=== PATIENT | female | born 1980 | race Caucasian/White ===

== ENCOUNTER 2025-01-06 15:52 | Outpatient (CLI) | payer OTHER, SELFPAY ==
--- OUTSIDE RECORDS SUMMARY | 2025-01-06 15:55 | XMS_ITS | Referral Summary ---
Author Organization [facility] Address [address] [place] [id number] Care Team Providers Care Housekeeping Worker Name Role Phone Allan Manzano Primary Care Provider [phone] Allergies Active Allergy Reactions Criticality Noted Date Comments Gluten Itching,Other (See comments),Nausea only,Fatigue Low celiac disease Omeprazole Hives Medium Ranitidine Hives Medium Medications ergocalciferol (VITAMIN D) 50,000 unit capsuleIndicati ons:Vitamin D Deficiency 1 capsule (50,000 Units total) every 14 (fourteen) days 1 9 Active drospirenone-et hinyl estradioL (REZA,GIANVI) 3-0.02 mg per tablet drospirenone 3 mg-ethinyl estradiol 0.02 mg tablet TAKE 1 TABLET BY MOUTH EVERY DAY Active ALPRAZolam (XANAX) 0.5 mg tablet Take 1 tablet (0.5 mg total) by mouth nightly as needed for anxiety Active Active Problems Problem Noted Date Diagnosed Date Peripheral vascular disease, unspecified 024 Assessment & Plan (05/11/2024 2:48 PM INSTRUCTION DEAN): Based on her history has no real risk factors for PVD, clinically has no signs of PVD as she has palpable pulses. Her ABIs are normal can follow up with me as needed. 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 Not on file Not on file Last Filed Vital Signs Vital Sign Reading Time Taken Comments Blood Pressure 133/87 05/06/2024 9:56 AM INSTRUCTION DEAN Pulse 64 05/06/2024 9:56 AM INSTRUCTION DEAN Temperature 37 C (98.6 F) 11/20/2023 9:26 AM CDT Respiratory Rate 13 11/20/2023 3:15 PM CDT Oxygen Saturation 99% 05/06/2024 9:56 AM INSTRUCTION DEAN Inhaled Oxygen Concentration - - Weight 80.7 kg (178 lb) 05/06/2024 9:56 AM INSTRUCTION DEAN Height 170.2 cm (5' 7) 05/06/2024 9:56 AM INSTRUCTION DEAN Body Mass Index 27.88 05/06/2024 9:56 AM INSTRUCTION DEAN Plan of Treatment Not on file Procedures Procedure Name Priority Date/Time Associated Diagnosis Comments SCREENING MAMMOGRAM BILATERAL W NORRIS W IMPLANTS Schedule Routine, Read Routine (OP Routine) 07/11/2023 4:40 PM INSTRUCTION DEAN Screening mammogram, encounter for THINPREP IMAGING PAP AND HPV MRNA E6/E7 REFLEX HPV 16,18/45 Routine 01/07/2018 10:26 AM CDT from Last 3 Months or Most Recently Relevant to Health Maintenance Results * Screening Mammogram Bilateral W Norris W Implants (07/11/2023 4:40 PM INSTRUCTION DEAN) Anatomical Region Laterality Modality Breast Bilateral Mammography 07/12/2023 8:13 AM INSTRUCTION DEAN Impressions 07/12/2023 8:13 AM INSTRUCTION DEAN There is no mammographic evidence of malignancy. A 1 year screening mammogram is recommended. BI-RADS: 1 - Negative. The patient has been or will be contacted. The patient will be entered into a reminder system with a target due date of 1 year for her next mammogram. Electronically signed by: Siage Lowery M.D. Narrative 07/12/2023 8:13 AM INSTRUCTION DEAN EXAMINATION: SCREENING MAMMOGRAM BILATERAL W NORRIS W IMPLANTS ORDERING HEALTHCARE PROVIDER: SELF SCREENING MAMMOGRAM HISTORY: Routine screening mammography. COMPARISON: 03/06/2022, 02/28/2021, 03/12/2019 TECHNIQUE: CC and MLO views of the bilateral breasts were obtained with digital technique using breast tomosynthesis with C view. Implant displaced as well as implant in view images were performed. Computer aided detection was utilized. FINDINGS: DENSITY: The tissue of the breasts is extremely dense, which lowers the sensitivity of mammography. BREASTS: There are bilateral retroglandular implants. There are no suspicious masses, suspicious calcifications, or other suspicious findings in either breast. There has been no suspicious interval change. us Self Screening Mammogram IMG MAMMO PROCEDURES Fi nal Result * ThinPrep Imaging Pap and HPV mRNA E6/E7 Reflex HPV 16,18/45 (01/07/2018 10:26 AM CDT) Report status [facility]CELED [facility] [place] Comment:Result canceled by t cyn ancillary CLINICAL INFORMATION: [facility] [place] Comment:Routine exam LMP 12/18/2017 [facility] [place] Previous Pap [facility] [place] Comment:INFORMATION NOT PROV IDED Prev. Bx [facility] [place] Comment:INFORMATION NOT PROV IDED SOURCE: [facility] [place] Comment:Cervix, Endocervix Pap, specimen adequacy [facility] [place] Comment: Satisfactory for evaluation. Endocervical/transformation zone component absent. Pap, general categorization [facility] [place] Comment:Result canceled by t he ancillary HPV interp [facility] [place] Comment:Negative for intraep ithelial lesion or malignancy. Infection: [facility]CELED [facility] [place] Comment:Result canceled by t he ancillary COMMENTS [facility] [place] Comment: This Pap test has been evaluated with computer assisted technology. Ui Designer [facility] - Comment: MLO, CT(ASCP) CT screening location: [place] [address] [address] [address] Review sales professional [facility] [place] Comment:Result canceled by t he ancillary Pathologist [facility] [place] Comment:Result canceled by t he ancillary Comment [facility] [place] Comment: EXPLANATORY NOTE: The Pap is a screening test for cervical cancer. It is not a diagnostic test and is subject to false negative and false positive results. It is most reliable when a satisfactory sample, regularly obtained, is submitted with relevant clinical findings and history, and when the Pap result is evaluated along with historic and current clinical information. Human papillomavirus RNA, High Risk E6/E7 Not Detected Not Detected [facility] [place] Comment: This test was performed using the APTIMA HPV Assay ([employer] This assay detects E6/E7 viral messenger RNA (mRNA) from 14 high-risk HPV types (16,18,31,33,35,39,45,51,52,56,58,59,66,68). The analytical performance characteristics of this assay have been determined by [facility]. The modifications have not been cleared or approved by the FDA. This assay has been validated pursuant to the CLIA regulations and is used for clinical purposes. 01/07/2018 10:2 6 AM CDT 01/08/2018 5:39 AM CDT Narrative Resulting Agency Comment Performing Organization Information: Site ID: [id number] Name: [facility] Address: [address] [address] Director: Ramone Castañeda D.O., MPH Site ID: [id number] Name: [facility] Address: [address] [address] [address] Director: Eric Ayala Ramandeep Walker MD LAB CYTOLOGY ORDERA BLES Final Result [facility] [place] [place] [facility] [place] from Last 3 Months or Most Recently Relevant to Health Maintenance [place] [address] [place] [address] HEALTHCARE Care Teams Housekeeping Worker Relationship Specialty Start Date End Date Allan Manzano PA [address] [place] [address] PCP - General 10/05/20
--- OUTSIDE RECORDS SUMMARY | 2025-01-06 15:55 | XMS_ITS | Clinical Summary ---
Author Organization [facility] Address [address] [place] [id number] Care Team Providers Care Hospital Secretary Name Role Phone Allan Manzano Primary Care Provider [phone] Allergies Active Allergy Reactions Criticality Noted Date [...] 024 Assessment & Plan (05/11/2024 2:48 PM ASSISTANT MANAGER QUALITY MANAGEMENT): Based on her history has no real [...] Administration Dates Next Due Td, adsorbed 03/17/2008 Surgical History Surgery Date Site/Laterality Comments TUBAL LIGATION 06/17/2005 - 06/16/2006 with C/S SECTION 06/17/2005 - 06/16/2006 AUGMENTATION MAMMOPLASTY 06/17/2009 - 06/16/2010 TONSILLECTOMY 06/17/2013 - 06/16/2014 DIAGNOSTIC LAPAROSCOPY 06/17/2014 - 06/16/2015 with LIZBETH, for pelvic pain and dyspareunia Medical History Medical History Date Comments Celiac disease Rheumatoid arthritis (HCC) Chronic idiopathic constipation Hiatal hernia Osteoarthritis Lupus Vitamin D deficiency Family History Medical History Relation Name Comments Depression Brother Diabetes Father Heart attack Father COD at age 56 Hypertension Father Heart attack Maternal Grandfather Cancer Maternal Grandmother periton eal cancer Non-Hodgkin's Lymphoma Maternal Grandmother Depression Mother Hypertension Mother Lupus Mother COD at age 60 Heart attack Mother's Brother COD at age 65 Diabetes Sister Relation Name Status Comments Brother Father Maternal Grandfather Maternal Grandmother Mother Mother's Brother Sister Social History Tobacco Use Types Packs/Day Years [...] on file Legal Sex Female 12:49 AM ASSISTANT MANAGER QUALITY MANAGEMENT Gender Identity Not on file Sexual Orientation Not on file 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 Not on file Not on file Obstetrics History Para Term AB IAB SAB Ectopic Multiple Livin g Live Births 4 3 3 0 1 0 1 0 0 3 3 Date Outcome GA Total Labor Labor//3rd Weight Sex Type Anes PTL Sil A1 A5 Name Clin Term Term Term SAB Last Filed Vital Signs Vital Sign Reading Time Taken Comments Blood Pressure 133/87 05/06/2024 9:56 AM ASSISTANT MANAGER QUALITY MANAGEMENT Pulse 64 05/06/2024 9:56 AM ASSISTANT MANAGER QUALITY MANAGEMENT Temperature 37 C (98.6 F) 11/20/2023 9:26 AM CDT Respiratory Rate 13 11/20/2023 3:15 PM CDT Oxygen Saturation 99% 05/06/2024 9:56 AM ASSISTANT MANAGER QUALITY MANAGEMENT Inhaled Oxygen Concentration - - Weight 80.7 kg (178 lb) 05/06/2024 9:56 AM ASSISTANT MANAGER QUALITY MANAGEMENT Height 170.2 cm (5' 7) 05/06/2024 9:56 AM ASSISTANT MANAGER QUALITY MANAGEMENT Body Mass Index 27.88 05/06/2024 9:56 AM ASSISTANT MANAGER QUALITY MANAGEMENT Plan of Treatment Health Maintenance Due Date Last Done Comments Colon Cancer Screening-Colonoscopy 1979 Depression Screening 1979 Hepatitis C Screening 1979 Cervical Cancer Screening 01/07/2019 01/07/2018 Regular Well Visit/Exam 18-64 01/07/2019 01/07/2018 Breast Cancer Screening-Mammogram 07/11/2024 07/11/2023, 03/06/2022, 02/28/2021 Influenza Vaccine (#1) 2025 04/01/2020 DTaP/Tdap/Td Vaccine (7 - Td or Tdap) 04/21/2030 04/21/2020, 08/28/2016, 03/17/2008, Additional history exists Hepatitis B Screening Completed 08/28/2016 HPV Vaccines Aged Out No longer eligi ble based on patient's age to complete this topic Pneumococcal vaccine <65 Aged Out No longer eligible based on patient's age to complete this topic Procedures Procedure Name Priority Date/Time Associated Diagnosis Comments SCREENING MAMMOGRAM BILATERAL W NORRIS W IMPLANTS Schedule Routine, Read Routine (OP Routine) 07/11/2023 4:40 PM ASSISTANT MANAGER QUALITY MANAGEMENT Screening mammogram, encounter for THINPREP IMAGING PAP AND HPV MRNA E6/E7 REFLEX HPV 16,18/45 Routine 01/07/2018 10:26 AM CDT from Last 3 Months or Most Recently Relevant to Health Maintenance Results * Screening Mammogram Bilateral W Norris W Implants (07/11/2023 4:40 PM ASSISTANT MANAGER QUALITY MANAGEMENT) Anatomical Region Laterality Modality Breast Bilateral Mammography 07/12/2023 8:13 AM ASSISTANT MANAGER QUALITY MANAGEMENT Impressions 07/12/2023 8:13 AM ASSISTANT MANAGER QUALITY MANAGEMENT There is no mammographic evidence of malignancy. A 1 year screening mammogram is recommended. BI-RADS: 1 - Negative. The patient has been or will be contacted. The patient will be entered into a reminder system with a target due date of 1 year for her next mammogram. Electronically signed by: Saige Lowery M.D. Narrative 07/12/2023 8:13 AM ASSISTANT MANAGER QUALITY MANAGEMENT EXAMINATION: SCREENING MAMMOGRAM BILATERAL W NORRIS W [...] [place] Comment:Result canceled by t cyn ancillary HPV interp [facility] [place] Comment:Negative for intraep ithelial lesion or malignancy. Infection: CANCELED [facility] - Comment:Result canceled by t he ancillary COMMENTS [facility] - Comment: This Pap test has been evaluated with computer assisted technology. Roll Or Tape Edge Machine Operator [facility] - Comment: MLO, CT(ASCP) CT screening location: [place] [address] [address] [address] [address] Review deoiling machine operator [facility]CEL[facility] - Comment:Result canceled by t he ancillary Pathologist [facility] - Comment:Result canceled by t he ancillary Comment [facility] - Comment: EXPLANATORY NOTE: The Pap is a [...] High Risk E6/E7 Not Detected Not Detected [facility] Comment: This test was performed using the APTIMA HPV Assay ([employer] This assay detects E6/E7 viral messenger RNA (mRNA) from 14 high-risk HPV types (16,18,31,33,35,39,45,51,52,56,58,59,66,68). The analytical performance characteristics of this assay have been determined by [employer]. The modifications have not been cleared or approved by the FDA. This assay has been validated pursuant to the CLIA regulations and is used for clinical purposes. 01/07/2018 10:2 6 AM CDT 01/08/2018 5:39 AM CDT Narrative Resulting Agency Comment Performing Organization Information: Site ID: [id number] Name: [facility] Address: [address] [place] [address] Director: Ramone Castañeda D.O., MPH Site ID: [id number] Name: [facility] Address: [address] [address] [address] [address] Director: Eric Ayala Ramandeep Walker MD LAB CYTOLOGY ORDERA BLES Final Result [facility] [place] [facility] [place] from Last 3 Months or Most Recently Relevant to Health Maintenance Insurance [facility] Care Teams Hospital Secretary Relationship Specialty Start Date End Date Allan Manzano PA [address] [place] [address] [facility] - General 10/05/20
[2025-01-06 18:21] LABS: Hematocrit 38.8 % (37.0-47.0); Hemoglobin 12.8 g/dL (12.0-15.0); Mean Corpuscular HGB Conc 33.0 g/dl (32-36); Mean Corpuscular Hemoglobin 31.0 pg (26-34); Mean Corpuscular Volume 93.9 fl (80-100); Platelet Count Result 322 k/mm3 (150-375); Red Blood Count 4.13 M/mm3 (4.2-5.4); White Blood Count 10.4 K/mm3 (4.5-10.0)
[2025-01-06 18:39] LABS: Alanine Aminotransferase 27 U/L (6-35); Albumin Level 4.5 g/dL (3.5-5.1); Alkaline Phosphatase 56 U/L (38-126); Anion Gap 7 mmol/L (4-12); Aspartate Amino Transferase 62 U/L (14-36); Bilirubin,Total 0.5 mg/dL (0.2-1.3); Blood Urea Nitrogen 20 mg/dL (7-17); Calcium 9.6 mg/dL (8.4-10.2); Carbon Dioxide 24 mmol/L (22-30); Chloride 105 mmol/L (98-107); Cholesterol 236 mg/dL (0-200); Estimated Glomerular Filt Rate > 60; Glucose 89 mg/dL (65-110); HDL Direct 57 mg/dL; Potassium 4.1 mmol/L (3.4-5.0); Sodium 136 mmol/L (137-145); Total Protein 8.1 g/dL (6.3-8.2); Triglycerides 223 mg/dL (<150)
[2025-01-06 18:44] LABS: Free T4 Free Thyroxine 1.13 ng/dL (0.78-2.19)
[2025-01-06 19:14] LABS: Thyroid Stimulating Hormone 2.800 uIU/mL (0.465-4.680)
== END 2025-01-06 15:53 | disposition home or self-care (01) ==
PROVIDERS: PCP Nurse Practitioner Adult Health; Visit Provider Nurse Practitioner Adult Health
DX: Z00.00 Encounter for general adult medical examination without abnormal findings (principal)
CPT/HCPCS: 36415; 80053; 80061; 84439; 84443; 85027; 86376